=== PATIENT | male | born 1995 | race Caucasian/White ===

== ENCOUNTER 2020-10-24 11:57 | Outpatient (REF) | payer OTHER, SELFPAY ==
[2020-10-24 12:18] LABS: COVID-19 Test Negative (Negative)
== END 2020-10-24 11:58 | disposition home or self-care (01) ==
LOC: HO.LAB 11:57
PROVIDERS: Visit Provider Internal Medicine
DX: Z20.822 Contact with and (suspected) exposure to COVID-19 (principal)
CPT/HCPCS: 87635; C9803; U0003; U0005